=== PATIENT | female | born 1985 | race Caucasian/White ===

== ENCOUNTER 2018-03-10 11:20 | Emergency (ER) | payer OTHER ==
[2018-03-10 11:27] VITALS: TEMP 97.8
--- NOTE | 2018-03-10 11:42 | ED ---
General Adult HPI - General Chief complaint: Recheck/Abnormal Lab/Rx Stated complaint: early /has IUD Source: patient Mode of arrival: ambulatory Limitations: no limitations - History of Present Illness Initial comments: Dictation was produced using [employer] dictation software. please excuse any grammatical, word or spelling errors. Chief Complaint: 32-year-old female past medical history of ulcerative colitis presents with left lower quadrant abdominal pain and requests to have IUD removed. History of Present Illness: Patient is a 32-year-old female with ulcerative colitis. Patient states she has a intrauterine device and was placed prevent . She was supposed to get a colonoscopy. They did a screening urine test which was positive. She was denied from getting the colonoscopy. She did another urine test at home which was positive. She does have an IUD that was placed been there for several months. She requests that removed if she is in fact . She has left lower quadrant pain is concerned about ectopic . Patient states she does have some left lower quadrant pain. She states this pain is different from her ulcerative colitis pain. Patient denies any lightheadedness. Denies any vaginal bleeding or vaginal discharge. The ROS documented in this emergency department record has been reviewed and confirmed by me. Those systems with pertinent positive or negative responses have been documented in the HPI. All other systems are other negative and/or noncontributory. - Related Data Home Medications Medication Instructions Recorded Confirmed Mesalamine [Lialda] 1.2 gm PO QID 04/27/15 03/10/18 methylPREDNISolone [Medrol Dose See Taper PO DAILY 05/18/16 03/10/18 Pack] Allergies Allergy/AdvReac Type Severity Reaction Status Date / Time Sulfa (Sulfonamide AdvReac Rash/Hives Verified 03/10/18 12:38 Antibiotics) Review of Systems ROS Statement: Those systems with pertinent positive or pertinent negative responses have been documented in the HPI. ROS Other: All systems not noted in ROS Statement are negative. Past Medical History Past Medical History: GI Bleed Additional Past Medical History / Comment(s): COLITS History of Any Multi-Drug Resistant Organisms: None Reported Past Surgical History: Section Additional Past Surgical History / Comment(s): CRANIAL FACIAL SURGERIES X5 FROM AGE 11-18, R/T DEFECT. colonoscopy. IUD Past Anesthesia/Blood Transfusion Reactions: No Reported Reaction Past Psychological History: No Psychological Hx Reported Smoking Status: Never smoker Past Alcohol Use History: None Reported Past Drug Use History: None Reported - Past Family History Mother Family Medical History: Cancer Additional Family Medical History / Comment(s): BREAST CANCER General Exam - General Exam Comments Initial Comments: PHYSICAL EXAM: General Impression: Alert and oriented x3, not in acute distress HEENT: Normocephalic atraumatic, extra-ocular movements intact, pupils equal and reactive to light bilaterally, mucous membranes moist. Cardiovascular: Heart regular rate and rhythm, S1&S2 audible, no murmurs, rubs or gallops Chest: Lungs clear to auscultation bilaterally, no rhonchi, no wheeze, no rales Abdomen: Bowel sounds present, abdomen soft, mild tenderness to the left lower quadrant, non-distended, no organomegaly Musculoskeletal: Pulses present and equal in all extremities, no peripheral edema Motor: Power 5/5 bilaterally, no focal deficits noted Neurological: CN II-XII grossly intact, no focal motor or sensory deficits noted Skin: Intact with no visualized rashes Psych: Normal affect and mood Limitations: no limitations Course Vital Signs 03/10/18 11:21 Temperature 97.8 F Pulse Rate 88 Respiratory 18 Rate Blood Pressure 116/74 O2 Sat by Pulse 100 Oximetry Medical Decision Making - Medical Decision Making ED course: 32-year-old female presents with left lower quadrant pain and positive urine test. As upon arrival are within acceptable limits. Laboratory evaluation obtained. There is positive beta Quant of 5361. Ultrasound did not confirm intrauterine however there is a anechoic area intrauterine. This point is to early to tell if there is an ectopic versus viable intrauterine . Miscarriage is also on the differential. Pelvic exam showed mild left adnexal tenderness. No cervical motion tenderness or right adnexal tenderness. No vaginal bleeding. Intrauterine device was removed. Discussed patient case with Dr. Dash recommended that patient be seen outpatient with repeat beta Quant in 48 hours. Patient understandable agreeable to plan. Told to return with any worsening pain, vaginal bleeding or feelings of malaise. Patient given outpatient referral to Dr. henderson. - Lab Data Result diagrams: 03/10/18 12:30 03/10/18 12:30 Lab Results 03/10/18 03/10/18 03/10/18 Range/Units 12:30 12:30 12:30 WBC 10.0 (3.8-10.6) k/uL RBC 4.01 (3.80-5.40) m/uL Hgb 11.5 (11.4-16.0) gm/dL Hct 35.2 (34.0-46.0) % MCV 87.9 (80.0-100.0) fL MCH 28.6 (25.0-35.0) pg MCHC 32.5 (31.0-37.0) g/dL RDW 15.3 (11.5-15.5) % Plt Count 354 (150-450) k/uL Neutrophils % 86 % Lymphocytes % 8 % Monocytes % 3 % Eosinophils % 1 % Basophils % 0 % Neutrophils # 8.7 H (1.3-7.7) k/uL Lymphocytes # 0.8 L (1.0-4.8) k/uL Monocytes # 0.3 (0-1.0) k/uL Eosinophils # 0.1 (0-0.7) k/uL Basophils # 0.0 (0-0.2) k/uL Sodium 138 (137-145) mmol/L Potassium 3.4 L (3.5-5.1) mmol/L Chloride 104 (98-107) mmol/L Carbon Dioxide 26 (22-30) mmol/L Anion Gap 8 mmol/L BUN 7 (7-17) mg/dL Creatinine 0.57 (0.52-1.04) mg/dL Est GFR (CKD-EPI)AfAm >90 (>60 ml/min/1.73 sqM) Est GFR (CKD-EPI)NonAf >90 (>60 ml/min/1.73 sqM) Glucose 87 (74-99) mg/dL Calcium 9.1 (8.4-10.2) mg/dL HCG, Quant 5361.1 mIU/mL Blood Type A Positive Blood Type Recheck No Antibody Screen NEGATIVE Spec Expiration Date 03/13/20182329 Disposition Clinical Impression: Disposition: HOME SELF-CARE Condition: Good Instructions: (ED) Additional Instructions: follow up with Dr. Tim on monday after betahcg quant blood draw Is patient prescribed a controlled substance at d/c from ED?: No Referrals: Otto Grover MD [Primary Care Provider] - 1-2 days Cris Tim DO [Doctor of Osteopathic Medicine] - 1-2 days Time of Disposition: 14:27
[2018-03-10 12:54] LABS: Basophils % (A) 0 %; Eosinophils # (A) 0.1 k/uL (0-0.7); Eosinophils % (A) 1 %; HCT 35.2 % (34.0-46.0); HGB 11.5 gm/dL (11.4-16.0); Lymphocytes # (A) 0.8 k/uL (1.0-4.8); Lymphocytes % (A) 8 %; MCH 28.6 pg (25.0-35.0); MCHC 32.5 g/dL (31.0-37.0); MCV 87.9 fL (80.0-100.0); Mean Platelet Volume 7.3; Monocytes # (A) 0.3 k/uL (0-1.0); Monocytes % (A) 3 %; Neutrophils # (A) 8.7 k/uL (1.3-7.7); Neutrophils % (A) 86 %; Platelet Count 354 k/uL (150-450); RBC 4.01 m/uL (3.80-5.40); RDW 15.3 % (11.5-15.5)
[2018-03-10 13:03] LABS: Anion Gap 8 mmol/L; Blood Urea Nitrogen 7 mg/dL (7-17); Calcium 9.1 mg/dL (8.4-10.2); Carbon Dioxide 26 mmol/L (22-30); Chloride 104 mmol/L (98-107); Glucose 87 mg/dL (74-99); Potassium 3.4 mmol/L (3.5-5.1); Sodium 138 mmol/L (137-145)
[2018-03-10 13:19] LABS: HCG,Quantitative Serum 5361.1 mIU/mL
--- NOTE | 2018-03-10 13:32 | US ---
EXAMINATION TYPE: Transabdominal and transvaginal DATE OF EXAM: 07/18/17 COMPARISON: NONE CLINICAL HISTORY: Pain. Patient states she was told she was at [facility] las t week. Patient currently has IUD. Cramping EXAM PERFORMED: Transvaginal (TV) and Transabdominal (TA) EXAM MEASUREMENTS: GESTATIONAL AGE / DATING Physician Established: Not yet established Dates by LMP: LMP unknown Dates by First Scan: No previous this is first scan Dates by Current Scan for: No pole or yolk sac visualized MATERNAL ANATOMY Uterus: 9.1 x 6.1 x 6.5 cm Right Ovary: 5.8 x 2.7 x 2.6 cm Left Ovary: 3.5 x 1.8 x 2.7 cm Post CDS / Adnexa: wnl Presence of free fluid: No Presence of corpus luteal cyst: Two cystic areas visualized right ovary, largest measuring 2.2 x 2.2 x 2.5 cm Presence of subchorionic bleed: No GESTATION / SURVEY MSD: 0.69 cm - Too small to date Yolk Sac (normal less than 6mm): Not visualized on this exam IUP: No pole or yolk sac visualized on this exam Date of LMP: Unsure Beta HcG (if available): Not available at this time Linear IUD noted centrally in uterus. Near this structure there is 7 mm oval anechoic lesion could re flect gestational sac. No yolk sac or pole is present. No free fluid is seen in pelvic cul-de-s ac. Both ovaries are seen. Right ovary is asymmetrically larger with 2 thin-walled cyst or cystic lesions identified. No suspicious extraovarian adnexal lesions are seen. IMPRESSION: Findings could reflect too early to visualize intrauterine adjacent to IUD however spontane ous is in differential and ectopic cannot be excluded. Serial beta hCG and ultraso und follow-up is advised.
[2018-03-10 14:58] VITALS: BP 113/58; PULSE 77; RESP 16
== END 2018-03-10 14:56 | disposition home or self-care (01) ==
LOC: EC 11:20
DX: O99.89 Other specified diseases and conditions complicating pregnancy, childbirth and the puerperium (principal); R10.32 Left lower quadrant pain; Z87.19 Personal history of other diseases of the digestive system; Z79.52 Long term (current) use of systemic steroids; Z79.899 Other long term (current) drug therapy; Z88.2 Allergy status to sulfonamides; Z97.5 Presence of (intrauterine) contraceptive device; Z3A.00 Weeks of gestation of pregnancy not specified
CPT/HCPCS: 36415; 76801; 76817; 80048; 84702; 85025; 86850; 86900; 86901; 99284

== ENCOUNTER 2018-04-02 08:18 | Emergency (ER) | payer OTHER ==
[2018-04-02 08:26] VITALS: PULSE 85
[2018-04-02] MEDS ORDERED: SODIUM CHLORIDE 0.9% 1,000 ML IV ONE (08:41)
--- NOTE | 2018-04-02 08:51 | ED ---
General Adult HPI - General Chief complaint: Vaginal Bleeding Stated complaint: 5-6 wks Time Seen by Provider: 04/02/18 08:29 Source: patient, RN notes reviewed Mode of arrival: ambulatory Limitations: no limitations - History of Present Illness Initial comments: Patient 32-year-old female who is G2, P1, presented to the emergency room today at approximately 6 weeks by last menstrual cycle, with a chief complaint of vaginal bleeding that started this morning. Patient does admit that she's had some cramping throughout the nothing significantly has changed with the pain. She does admit that she had some bleeding starting this morning. She has noticed that she's passed a few small clots. Patient does admit some nausea throughout . Denies any other complaints or symptoms. Patient denies any recent fever, chills, shortness of breath, chest pain, back pain, nausea or vomiting, numbness or tingling, headaches or visual changes, or any other complaints. - Related Data Home Medications Medication Instructions Recorded Confirmed Bxr-Cmga-[id number] Acid 1 cap PO DAILY 04/02/18 04/02/18 [-U Capsule (formulary)] Previous Rx's Medication Instructions Recorded Nitrofurantoin Monohyd/M-Cryst 100 mg PO Q12HR #14 cap 04/02/18 [Macrobid] Allergies Allergy/AdvReac Type Severity Reaction Status Date / Time Sulfa (Sulfonamide AdvReac Rash/Hives Verified 04/02/18 09:11 Antibiotics) Review of Systems ROS Statement: Those systems with pertinent positive or pertinent negative responses have been documented in the HPI. ROS Other: All systems not noted in ROS Statement are negative. Past Medical History Past Medical History: GI Bleed Additional Past Medical History / Comment(s): COLITS History of Any Multi-Drug Resistant Organisms: None Reported Past Surgical History: Section Additional Past Surgical History / Comment(s): CRANIAL FACIAL SURGERIES X5 FROM AGE 11-18, R/T DEFECT. colonoscopy. IUD Past Anesthesia/Blood Transfusion Reactions: No Reported Reaction Past Psychological History: No Psychological Hx Reported, Depression Smoking Status: Never smoker Past Alcohol Use History: None Reported Past Drug Use History: None Reported - Past Family History Mother Family Medical History: Cancer Additional Family Medical History / Comment(s): BREAST CANCER General Exam - General Exam Comments Initial Comments: General: The patient is awake and alert, in no distress, and does not appear acutely ill. Neck: The neck is supple, there is no tenderness or JVD. Cardiovascular: There is a regular rate and rhythm. No murmur, rub or gallop is appreciated. Respiratory: Lungs are clear to auscultation, respirations are non-labored, breath sounds are equal. No wheezes, stridor, rales, or rhonchi. Gastrointestinal: Soft, non-distended, non-tender abdomen without masses or organomegaly noted. There is no rebound or guarding present. No CVA tenderness. Musculoskeletal: Normal ROM, no tenderness. Neurological: A&O x 3. CN II-XII intact, There are no obvious motor or sensory deficits. Coordination appears grossly intact. Speech is normal. Skin: Skin is warm and dry and no rashes or lesions are noted. Psychiatric: Cooperative, appropriate mood & affect, normal judgment. Limitations: no limitations Course Vital Signs 04/02/18 08:23 Temperature 98.4 F Pulse Rate 85 Respiratory 18 Rate Blood Pressure 113/76 O2 Sat by Pulse 99 Oximetry Medical Decision Making - Medical Decision Making Patient's ultrasound does show 1. She will live IUP measuring 8 weeks 6 days. 2. 4 cm heterogeneous area to the left of the gestational sac suggesting moderate size. Gestational bleed. 3. heart rate of her limits of normal at 170. 4. Otherwise, complete survey patient's Rh+. Patient resting comfortably. Recent labs been reviewed. At this time patient will be discharged home advise following up with [facility] over the next 2 days. She is advised pelvic rest. Patient's labs been reviewed. Rh+. Patient's urinalysis does show evidence for infection. Will be started on antibiotics. Advised returning if any symptoms increase worsen. - Lab Data Result diagrams: 04/02/18 09:10 04/02/18 09:10 Lab Results 04/02/18 04/02/18 04/02/18 Range/Units 09:10 09:10 09:10 WBC 5.3 (3.8-10.6) k/uL RBC 4.56 (3.80-5.40) m/uL Hgb 12.7 (11.4-16.0) gm/dL Hct 40.1 (34.0-46.0) % MCV 88.0 (80.0-100.0) fL MCH 27.8 (25.0-35.0) pg MCHC 31.6 (31.0-37.0) g/dL RDW 15.5 (11.5-15.5) % Plt Count 240 (150-450) k/uL Neutrophils % 65 % Lymphocytes % 20 % Monocytes % 5 % Eosinophils % 7 % Basophils % 1 % Neutrophils # 3.4 (1.3-7.7) k/uL Lymphocytes # 1.1 (1.0-4.8) k/uL Monocytes # 0.3 (0-1.0) k/uL Eosinophils # 0.4 (0-0.7) k/uL Basophils # 0.1 (0-0.2) k/uL Sodium 139 (137-145) mmol/L Potassium 4.6 (3.5-5.1) mmol/L Chloride 107 (98-107) mmol/L Carbon Dioxide 20 L (22-30) mmol/L Anion Gap 12 mmol/L BUN 11 (7-17) mg/dL Creatinine 0.52 (0.52-1.04) mg/dL Est GFR (CKD-EPI)AfAm >90 (>60 ml/min/1.73 sqM) Est GFR (CKD-EPI)NonAf >90 (>60 ml/min/1.73 sqM) Glucose 81 (74-99) mg/dL Calcium 9.8 (8.4-10.2) mg/dL Total Bilirubin 0.7 (0.2-1.3) mg/dL AST 34 (14-36) U/L ALT <6 L (9-52) U/L Alkaline Phosphatase 46 (38-126) U/L Total Protein 8.5 H (6.3-8.2) g/dL Albumin 5.0 (3.5-5.0) g/dL HCG, Quant 358914.0 mIU/mL Urine Color Urine Appearance (Clear) Urine pH (5.0-8.0) Ur Specific [place] (1.001-1.035) Urine Protein (Negative) Urine Glucose (UA) (Negative) Urine Ketones (Negative) Urine Blood (Negative) Urine Nitrite (Negative) Urine Bilirubin (Negative) Urine Urobilinogen (<2.0) mg/dL Ur Leukocyte Esterase (Negative) Urine RBC (0-5) /hpf Urine WBC (0-5) /hpf Urine Mucus (None) /hpf Blood Type A Positive Blood Type Recheck No 04/02/18 Range/Units 09:19 WBC (3.8-10.6) k/uL RBC (3.80-5.40) m/uL Hgb (11.4-16.0) gm/dL Hct (34.0-46.0) % MCV (80.0-100.0) fL MCH (25.0-35.0) pg MCHC (31.0-37.0) g/dL RDW (11.5-15.5) % Plt Count (150-450) k/uL Neutrophils % % Lymphocytes % % Monocytes % % Eosinophils % % Basophils % % Neutrophils # (1.3-7.7) k/uL Lymphocytes # (1.0-4.8) k/uL Monocytes # (0-1.0) k/uL Eosinophils # (0-0.7) k/uL Basophils # (0-0.2) k/uL Sodium (137-145) mmol/L Potassium (3.5-5.1) mmol/L Chloride (98-107) mmol/L Carbon Dioxide (22-30) mmol/L Anion Gap mmol/L BUN (7-17) mg/dL Creatinine (0.52-1.04) mg/dL Est GFR (CKD-EPI)AfAm (>60 ml/min/1.73 sqM) Est GFR (CKD-EPI)NonAf (>60 ml/min/1.73 sqM) Glucose (74-99) mg/dL Calcium (8.4-10.2) mg/dL Total Bilirubin (0.2-1.3) mg/dL AST (14-36) U/L ALT (9-52) U/L Alkaline Phosphatase (38-126) U/L Total Protein (6.3-8.2) g/dL Albumin (3.5-5.0) g/dL HCG, Quant mIU/mL Urine Color Light Red Urine Appearance Clear (Clear) Urine pH 6.0 (5.0-8.0) Ur Specific [place] 1.020 (1.001-1.035) Urine Protein 1+ H (Negative) Urine Glucose (UA) Negative (Negative) Urine Ketones Negative (Negative) Urine Blood Large H (Negative) Urine Nitrite Negative (Negative) Urine Bilirubin Negative (Negative) Urine Urobilinogen <2.0 (<2.0) mg/dL Ur Leukocyte Esterase Small H (Negative) Urine RBC >182 H (0-5) /hpf Urine WBC 55 H (0-5) /hpf Urine Mucus Many H (None) /hpf Blood Type Blood Type Recheck Disposition Clinical Impression: , UTI (urinary tract infection) Disposition: HOME SELF-CARE Condition: Good Instructions: Urinary Tract Infection in Women (ED) Additional Instructions: Please use medication as discussed. Please follow-up with the [facility] over the next 2 days. Please return to emergency room if the symptoms increase or worsen or for any other concerns. Prescriptions: Nitrofurantoin Monohyd/M-Cryst [Macrobid] 100 mg PO Q12HR #14 cap Is patient prescribed a controlled substance at d/c from ED?: No Referrals: Otto Grover MD [Primary Care Provider] - 1-2 days Time of Disposition: 12:18
[2018-04-02 09:30] LABS: Basophils # (A) 0.1 k/uL (0-0.2); Basophils % (A) 1 %; Eosinophils # (A) 0.4 k/uL (0-0.7); Eosinophils % (A) 7 %; HCT 40.1 % (34.0-46.0); HGB 12.7 gm/dL (11.4-16.0); Lymphocytes # (A) 1.1 k/uL (1.0-4.8); Lymphocytes % (A) 20 %; MCH 27.8 pg (25.0-35.0); MCHC 31.6 g/dL (31.0-37.0); Mean Platelet Volume 8.1; Monocytes # (A) 0.3 k/uL (0-1.0); Monocytes % (A) 5 %; Neutrophils # (A) 3.4 k/uL (1.3-7.7); Neutrophils % (A) 65 %; Platelet Count 240 k/uL (150-450); RBC 4.56 m/uL (3.80-5.40); RDW 15.5 % (11.5-15.5); WBC 5.3 k/uL (3.8-10.6)
[2018-04-02 09:41] LABS: ALT <6 U/L (9-52); AST 34 U/L (14-36); Alkaline Phosphatase 46 U/L (38-126); Anion Gap 12 mmol/L; Blood Urea Nitrogen 11 mg/dL (7-17); Calcium 9.8 mg/dL (8.4-10.2); Carbon Dioxide 20 mmol/L (22-30); Chloride 107 mmol/L (98-107); Glucose 81 mg/dL (74-99); Potassium 4.6 mmol/L (3.5-5.1); Sodium 139 mmol/L (137-145); Total Bilirubin 0.7 mg/dL (0.2-1.3); Total Protein 8.5 g/dL (6.3-8.2)
--- NOTE | 2018-04-02 10:15 | US ---
EXAMINATION TYPE: Transabdominal DATE OF EXAM: 07/18/17 COMPARISON: US 03/10/2018 CLINICAL HISTORY: 32-year-old female pain. IUD removed 03/10/2018, positive test, bleeding today EXAM PERFORMED: Transabdominal (TA) FINDINGS: EXAM MEASUREMENTS: GESTATIONAL AGE / DATING Physician Established: Not yet established Dates by LMP: LMP unknown Dates by First Scan: Unable to date at that time Dates by Current Scan for: (8 weeks/6 days) EDC: 11/06/2018 MATERNAL ANATOMY Uterus: 9.9 x 6.8 x 7.6 cm Right Ovary: 5.2 x 2.6 x 2.4 cm Left Ovary: 3.9 x 1.8 x 2.7 cm Post CDS / Adnexa: wnl Presence of free fluid: No Presence of corpus luteal cyst: Two cystic areas right ovary, largest measuring 1.7 x 1.7 x 1.7 cm, one of which likely represents a corpus luteum. Presence of subchorionic bleed: Heterogeneous area to the left of the gestational sac measuring 3.8 x 2.4 x 4.0 cm GESTATION / SURVEY CRL: 2.2 cm (8 weeks/6 days) Yolk Sac (normal less than 6mm): 3 mm Heart Rate: 170 bpm Rhythm: Normal IUP: Viable IUP Date of LMP: LMP unknown Beta HcG (if available): Not available at this time Home Care Liaison notes: Viable IUP with an MARGARITA of 11/06/2018 by this exam. Probable subchorionic bleed vis ualized measuring 3.8 x 2.4 x 4.0 cm IMPRESSION: 1. Single live intrauterine with gestational age of 8 weeks 6 days by crown-rump length. Pr evious IUD removed. 2. A 4 cm heterogeneous area to the left of the gestational sac suggests a moderate-sized perigestati onal bleed. 3. heart rate upper limits of normal (170 BPM). Consider short interval follow-up. 4. Otherwise, complete survey recommended at 18-20 weeks.
[2018-04-02 12:11] LABS: Appearance,Urine Clear (Clear); Bilirubin,Urine Negative (Negative); Blood,Urine Large (Negative); Color,Urine Light Red; Glucose,Urine (UA) Negative (Negative); Ketones,Urine Negative (Negative); Leukocyte Esterase,Urine Small (Negative); Mucus,Urine Many /hpf; Nitrite,Urine Negative (Negative); Protein,Urine 1+ (Negative); RBC,Urine >182 /hpf (0-5); Urobilinogen,Urine <2.0 mg/dL (<2.0); WBC,Urine 55 /hpf (0-5)
[2018-04-02 12:30] VITALS: BP 117/74; RESP 15; TEMP 99.1
== END 2018-04-02 12:25 | disposition home or self-care (01) ==
LOC: EC 08:18
DX: O23.41 Unspecified infection of urinary tract in pregnancy, first trimester (principal); O20.9 Hemorrhage in early pregnancy, unspecified; O99.89 Other specified diseases and conditions complicating pregnancy, childbirth and the puerperium; R11.0 Nausea; Z3A.08 8 weeks gestation of pregnancy; Z88.2 Allergy status to sulfonamides; Z53.8 Procedure and treatment not carried out for other reasons
CPT/HCPCS: 36415; 76801; 80053; 81001; 84702; 85025; 86900; 86901; 99284

== ENCOUNTER 2018-04-11 08:17 | Emergency (ER) | payer OTHER ==
[2018-04-11 08:21] VITALS: RESP 18
--- NOTE | 2018-04-11 08:32 | ED ---
Female Urogenital HPI - General Chief complaint: Vaginal Bleeding Stated complaint: Vaginal Bleeding-10 wks Time Seen by Provider: 04/11/18 08:22 Source: patient, RN notes reviewed, old records reviewed Mode of arrival: ambulatory Limitations: no limitations - History of Present Illness Initial comments: Patient is a 32-year-old female, who presents emergency Department due to plan heavy vaginal bleeding morning. Patient reports that she was diagnosed with subchorionic bleed 2 weeks ago. At that time she's a weeks , currently 10 weeks . She reports she passed heavy clots and she believes she may have completed a miscarriage. Patient implanted no pain or cramping at this time. She reports that her bleeding has slowed. She felt slightly dizzy at the time. Patient is a female. Her [employer] is Dr. Estevez. - Related Data Home Medications Medication Instructions Recorded Confirmed Imf-Otsp-Mvoaw Acid 1 cap PO DAILY 04/02/18 04/11/18 [-U Capsule (formulary)] Allergies Allergy/AdvReac Type Severity Reaction Status Date / Time Sulfa (Sulfonamide AdvReac Rash/Hives Verified 04/11/18 08:50 Antibiotics) Review of Systems ROS Statement: Those systems with pertinent positive or pertinent negative responses have been documented in the HPI. ROS Other: All systems not noted in ROS Statement are negative. Past Medical History Past Medical History: GI Bleed Additional Past Medical History / Comment(s): COLITS History of Any Multi-Drug Resistant Organisms: None Reported Past Surgical History: Section Additional Past Surgical History / Comment(s): CRANIAL FACIAL SURGERIES X5 FROM AGE 11-18, R/T DEFECT. colonoscopy. IUD Past Anesthesia/Blood Transfusion Reactions: No Reported Reaction Past Psychological History: Depression Smoking Status: Never smoker Past Alcohol Use History: None Reported Past Drug Use History: None Reported - Past Family History Mother Family Medical History: Cancer Additional Family Medical History / Comment(s): BREAST CANCER General Exam - General Exam Comments Initial Comments: This Patient is a 32-year-old female. Alert and oriented. Patient appears in no significant distress. Limitations: no limitations General appearance: alert, in no apparent distress Head exam: Present: atraumatic, normocephalic, normal inspection Eye exam: Present: normal appearance, PERRL, EOMI. Absent: scleral icterus, conjunctival injection, periorbital swelling ENT exam: Present: normal exam, mucous membranes moist Neck exam: Present: normal inspection. Absent: tenderness, meningismus, lymphadenopathy Respiratory exam: Present: normal lung sounds bilaterally. Absent: respiratory distress, wheezes, rales, rhonchi, stridor Cardiovascular Exam: Present: regular rate GI/Abdominal exam: Present: soft, normal bowel sounds. Absent: distended, tenderness, guarding, rebound, rigid External exam: Present: normal external exam Speculum exam: Present: vaginal bleeding (heavy clots from cervix). Absent: normal speculum exam Extremities exam: Present: normal inspection, full ROM, normal capillary refill. Absent: tenderness, pedal edema, joint swelling, calf tenderness Back exam: Present: normal inspection Neurological exam: Present: alert, oriented X3, CN II-XII intact Psychiatric exam: Present: normal affect, normal mood Skin exam: Present: warm, dry, intact, normal color. Absent: rash Course Vital Signs 04/11/18 04/11/18 08:18 10:35 Temperature 98.1 F 98 F Pulse Rate 88 64 Respiratory 18 18 Rate Blood Pressure 112/70 120/72 O2 Sat by Pulse 100 100 Oximetry Medical Decision Making - Medical Decision Making Patient is a 32-year-old female presents returns here to plan of heavy vaginal bleeding times one day. Recently diagnosed with subchorionic bleed. Patient's ultrasound that showed a viable IUP measuring about 10 weeks. Patient has Rh+ blood type. HCG is [id number]. Patient does have very large subchorionic bleed at this time likely from the source patient's bleeding. We'll diagnosed Patient with threatened miscarriage. Advised following up with her [employer]. All questions answered return parameters were discussed. Patient does have an appointment with her [employer] tomorrow. - Lab Data Result diagrams: 04/11/18 08:45 04/11/18 08:45 Lab Results 04/11/18 04/11/18 04/11/18 Range/Units 06:55 08:45 08:45 WBC 5.3 (3.8-10.6) k/uL RBC 4.34 (3.80-5.40) m/uL Hgb 12.5 (11.4-16.0) gm/dL Hct 38.4 (34.0-46.0) % MCV 88.6 (80.0-100.0) fL MCH 28.9 (25.0-35.0) pg MCHC 32.7 (31.0-37.0) g/dL RDW 15.4 (11.5-15.5) % Plt Count 249 (150-450) k/uL Neutrophils % 69 % Lymphocytes % 21 % Monocytes % 4 % Eosinophils % 4 % Basophils % 1 % Neutrophils # 3.6 (1.3-7.7) k/uL Lymphocytes # 1.1 (1.0-4.8) k/uL Monocytes # 0.2 (0-1.0) k/uL Eosinophils # 0.2 (0-0.7) k/uL Basophils # 0.1 (0-0.2) k/uL Sodium (137-145) mmol/L Potassium (3.5-5.1) mmol/L Chloride (98-107) mmol/L Carbon Dioxide (22-30) mmol/L Anion Gap mmol/L BUN (7-17) mg/dL Creatinine (0.52-1.04) mg/dL Est GFR (CKD-EPI)AfAm (>60 ml/min/1.73 sqM) Est GFR (CKD-EPI)NonAf (>60 ml/min/1.73 sqM) Glucose (74-99) mg/dL Calcium (8.4-10.2) mg/dL Total Bilirubin (0.2-1.3) mg/dL AST (14-36) U/L ALT (9-52) U/L Alkaline Phosphatase (38-126) U/L Total Protein (6.3-8.2) g/dL Albumin (3.5-5.0) g/dL Urine Color Dark Red Urine Appearance Cloudy H (Clear) Urine pH 5.0 (5.0-8.0) Ur Specific [place] 1.017 (1.001-1.035) Urine Protein 1+ H (Negative) Urine Glucose (UA) Negative (Negative) Urine Ketones Trace H (Negative) Urine Blood Large H (Negative) Urine Nitrite Negative (Negative) Urine Bilirubin Negative (Negative) Urine Urobilinogen <2.0 (<2.0) mg/dL Ur Leukocyte Esterase Small H (Negative) Urine RBC >182 H (0-5) /hpf Urine WBC 11 H (0-5) /hpf Ur Squamous Epith Cells 3 (0-4) /hpf Urine Mucus Few H (None) /hpf Blood Type A Positive Blood Type Recheck No 04/11/18 Range/Units 08:45 WBC (3.8-10.6) k/uL RBC (3.80-5.40) m/uL Hgb (11.4-16.0) gm/dL Hct (34.0-46.0) % MCV (80.0-100.0) fL MCH (25.0-35.0) pg MCHC (31.0-37.0) g/dL RDW (11.5-15.5) % Plt Count (150-450) k/uL Neutrophils % % Lymphocytes % % Monocytes % % Eosinophils % % Basophils % % Neutrophils # (1.3-7.7) k/uL Lymphocytes # (1.0-4.8) k/uL Monocytes # (0-1.0) k/uL Eosinophils # (0-0.7) k/uL Basophils # (0-0.2) k/uL Sodium 139 (137-145) mmol/L Potassium 4.6 (3.5-5.1) mmol/L Chloride 109 H (98-107) mmol/L Carbon Dioxide 20 L (22-30) mmol/L Anion Gap 10 mmol/L BUN 9 (7-17) mg/dL Creatinine 0.47 L (0.52-1.04) mg/dL Est GFR (CKD-EPI)AfAm >90 (>60 ml/min/1.73 sqM) Est GFR (CKD-EPI)NonAf >90 (>60 ml/min/1.73 sqM) Glucose 101 H (74-99) mg/dL Calcium 9.4 (8.4-10.2) mg/dL Total Bilirubin 0.8 (0.2-1.3) mg/dL AST 35 (14-36) U/L ALT 13 (9-52) U/L Alkaline Phosphatase <20 L (38-126) U/L Total Protein 7.4 (6.3-8.2) g/dL Albumin 4.2 (3.5-5.0) g/dL Urine Color Urine Appearance (Clear) Urine pH (5.0-8.0) Ur Specific [place] (1.001-1.035) Urine Protein (Negative) Urine Glucose (UA) (Negative) Urine Ketones (Negative) Urine Blood (Negative) Urine Nitrite (Negative) Urine Bilirubin (Negative) Urine Urobilinogen (<2.0) mg/dL Ur Leukocyte Esterase (Negative) Urine RBC (0-5) /hpf Urine WBC (0-5) /hpf Ur Squamous Epith Cells (0-4) /hpf Urine Mucus (None) /hpf Blood Type Blood Type Recheck - Radiology Data Radiology results: report reviewed Ultrasound shows single live IUP PE be demonstrated. Persistent moderate size subchorionic hematoma noted. Consider short-term follow-up with a beta hCG and ultrasound. Disposition Clinical Impression: Subchorionic bleed, Threatened miscarriage Disposition: HOME SELF-CARE Condition: Good Instructions: Threatened Miscarriage (ED) Additional Instructions: Follow-up with your [employer] and primary care provider. Return to emergency department if any alarming signs or symptoms occur. Is patient prescribed a controlled substance at d/c from ED?: No Referrals: Otto Grover MD [Primary Care Provider] - 1-2 days Time of Disposition: 11:03
[2018-04-11 09:06] LABS: Basophils # (A) 0.1 k/uL (0-0.2); Basophils % (A) 1 %; Eosinophils # (A) 0.2 k/uL (0-0.7); Eosinophils % (A) 4 %; HCT 38.4 % (34.0-46.0); HGB 12.5 gm/dL (11.4-16.0); Lymphocytes # (A) 1.1 k/uL (1.0-4.8); Lymphocytes % (A) 21 %; MCH 28.9 pg (25.0-35.0); MCHC 32.7 g/dL (31.0-37.0); MCV 88.6 fL (80.0-100.0); Mean Platelet Volume 7.1; Monocytes # (A) 0.2 k/uL (0-1.0); Monocytes % (A) 4 %; Neutrophils # (A) 3.6 k/uL (1.3-7.7); Neutrophils % (A) 69 %; Platelet Count 249 k/uL (150-450); RBC 4.34 m/uL (3.80-5.40); RDW 15.4 % (11.5-15.5); WBC 5.3 k/uL (3.8-10.6)
[2018-04-11 09:08] LABS: ALT 13 U/L (9-52); AST 35 U/L (14-36); Albumin 4.2 g/dL (3.5-5.0); Alkaline Phosphatase <20 U/L (38-126); Anion Gap 10 mmol/L; Blood Urea Nitrogen 9 mg/dL (7-17); Calcium 9.4 mg/dL (8.4-10.2); Carbon Dioxide 20 mmol/L (22-30); Chloride 109 mmol/L (98-107); Glucose 101 mg/dL (74-99); Sodium 139 mmol/L (137-145); Total Bilirubin 0.8 mg/dL (0.2-1.3); Total Protein 7.4 g/dL (6.3-8.2)
[2018-04-11 09:11] LABS: Potassium 4.6 mmol/L (3.5-5.1)
[2018-04-11 09:12] LABS: Appearance,Urine Cloudy (Clear); Bilirubin,Urine Negative (Negative); Blood,Urine Large (Negative); Color,Urine Dark Red; Glucose,Urine (UA) Negative (Negative); Ketones,Urine Trace (Negative); Leukocyte Esterase,Urine Small (Negative); Mucus,Urine Few /hpf; Nitrite,Urine Negative (Negative); Protein,Urine 1+ (Negative); RBC,Urine >182 /hpf (0-5); Specific Gravity,Urine 1.017 (1.001-1.035); Squamous Epithelial Cell,Urine 3 /hpf (0-4); Urobilinogen,Urine <2.0 mg/dL (<2.0)
--- NOTE | 2018-04-11 09:56 | US ---
EXAMINATION TYPE: Transabdominal DATE OF EXAM: 07/18/17 COMPARISON: US 9 days ago. CLINICAL HISTORY: pain. Pt states heavy vaginal bleeding with clots that started this AM/ Pt denies p ain EXAM PERFORMED: Transabdominal (TA) EXAM MEASUREMENTS: GESTATIONAL AGE / DATING Physician Established: Not yet established Dates by LMP: Unknown Dates by First Scan: (10 weeks/1 days) EDC: 11/06/2018 Dates by Current Scan for: (10 weeks/2 days) EDC: 11/05/2018 MATERNAL ANATOMY Uterus: 11.0 x 7.4 x 9.0 cm Right Ovary: 3.7 x 2.2 x 3.3 cm Left Ovary: 3.0 x 1.9 x 2.1 cm Post CDS / Adnexa: wnl Presence of free fluid: No Presence of corpus luteal cyst: Right Ovary= 1.7 x 1.9 x 2.2 cm Presence of subchorionic bleed: Left uterus as seen on prior= 3.6 x 2.5 x 1.5 cm GESTATION / SURVEY CRL: 3.4 cm (10 weeks/2 days) MSD: wnl Yolk Sac (normal less than 6mm): 3mm Heart Rate: 178 bpm IUP: Viable IUP Single live intrauterine gestation redemonstrated as gestational sac, yolk sac, and pole are ag ain seen. No free fluid is seen in pelvic cul-de-sac. heart rate similar to prior upper limits of normal. There is persistent moderate size subchorionic hemorrhage along left inferior aspect of ge stational sac as detailed above stable or slightly smaller versus prior. Both ovaries are seen. Within right ovary there is persistent 2.2 cm oval anechoic lesion consistent with corpus luteal cyst. No suspicious extraovarian adnexal masses are noted. IMPRESSION: Single live intrauterine gestation redemonstrated, persistent moderate size subchorionic hematoma not ed. Consider short-term beta-hCG and ultrasound follow-up.
[2018-04-11 10:42] VITALS: BP 120/72; PULSE 64; TEMP 98
== END 2018-04-11 11:16 | disposition home or self-care (01) ==
LOC: EC 08:17
DX: O20.0 Threatened abortion (principal); Z67.90 Unspecified blood type, Rh positive; Z88.2 Allergy status to sulfonamides; Z98.890 Other specified postprocedural states; Z3A.10 10 weeks gestation of pregnancy
CPT/HCPCS: 36415; 76801; 80053; 81001; 84702; 85025; 86900; 86901; 87086; 99284

== ENCOUNTER → 2018-04-26 | Outpatient (CLI) | payer OTHER ==
--- NOTE | 2018-04-26 10:05 | US ---
EXAMINATION TYPE: Transabdominal DATE OF EXAM: 07/18/17 COMPARISON: US April 11, 2018 CLINICAL HISTORY: Z34.90Encounter for supervision of normal . F/U previous abnormal US/ Pt d enies pain or bleeding at this time EXAM PERFORMED: Transabdominal (TA) EXAM MEASUREMENTS: GESTATIONAL AGE / DATING Physician Established: (12 weeks/3 days) EDC: 11/05/2018 Dates by LMP: Unknown Dates by First Scan: (12 weeks/2 days) EDC: 11/06/2018 Dates by Current Scan for: (12 weeks/2 days) EDC: 11/06/2018 MATERNAL ANATOMY Uterus: 14.4 x 6.1 x 9.8 cm Right Ovary: 4.2 x 2.4 x 2.5 cm Left Ovary: 3.2 x 2.0 x 2.7 cm Post CDS / Adnexa: wnl Presence of free fluid: No Presence of corpus luteal cyst: Right Ovary= 1.9 x 1.9 x 1.9 cm Presence of subchorionic bleed: Left Uterus= 3.1 x 2.1 x 2.1 cm as seen on previous GESTATION / SURVEY CRL: 5.8 cm (12 weeks/2 days) MSD: wnl Heart Rate: 163 bpm Rhythm: Normal IUP: Viable IUP Nuchal Translucency 10-14wks (normal less than 3mm): 2mm Single live intrauterine gestation is redemonstrated as gestational sac and pole are seen. Yolk sac is not clearly identified on current study. No free fluid is seen in pelvic cul-de-sac. There is persistent small to moderate-sized subchorionic bleed left of gestational sac as detailed above not significantly changed in size from prior study. Both ovaries are redemonstrated without new adnexal mass. Corpus luteal cyst right ovary is again see n. IMPRESSION: Single live intrauterine gestation redemonstrated, interval satisfactory growth progression. Stable s mall to moderate-sized subchorionic hemorrhage.
== END ==
LOC: RADUSWWP 08:43
PROVIDERS: ATTEND Obstetrics & Gynecology
DX: Z34.91 Encounter for supervision of normal pregnancy, unspecified, first trimester (principal); Z3A.12 12 weeks gestation of pregnancy
CPT/HCPCS: 76801; 76813

== ENCOUNTER → 2018-06-14 | Outpatient (CLI) | payer OTHER ==
--- NOTE | 2018-06-14 15:18 | US ---
EXAMINATION TYPE: US OB anatomy transabd DATE OF EXAM: 06/14/2018 COMPARISON: US first trimester 04/26/2018 HISTORY: [id number] supervision of other normal TECHNIQUE: Transabdominal (TA) EXAM MEASUREMENTS: GESTATIONAL AGE / DATING Physician Established: (19 weeks/3 days) EDC: 11/05/2018 Dates by LMP: (19 weeks/3 days) EDC: 11/05/2018 Dates by First Scan: (19 weeks/2 days) EDC: 11/06/2018 Dates by Current Scan for: (19 weeks/1 days) EDC: 11/07/2018 SURVEY IUP: Single PLACENTA: Anterior PREVIA: No previa MICHAEL: 17.1 cm Normal CERVICAL LENGTH (transabdominal: norm > 3.0cm): 3.8 cm BIOMETRY PRESENTATION: Vertex LIE: Longitudinal BPD: 4.3 cm 19 weeks / 0 days HC: 16.3 cm 19 weeks / 0 days AC: 14.1 cm 19 weeks / 4 days FL: 3.1 cm 19 weeks / 4 days ESTIMATED WEIGHT IN GRAMS: 294 grams ESTIMATED WEIGHT IN LBS/OZ: 0 lbs. 10 oz. WEIGHT PERCENTAGE BASED ON ESTABLISHED DATE: 47.8 % HC/AC: 1.15 Normal FL/AC: 21.79 Normal HEART RATE: 152 bpm RHYTHM: Normal ANATOMY SEEN (within normal limits): * Lateral Vent (< 1 cm) 0.8 cm * Cisterna Magna (< 1.1 cm) 0.3 cm * Nuchal Fold (< 0.6 cm) 0.3 cm * Cerebellum (varies with age) 1.8 cm Choroid Plexus (bilateral) Midline Falx Cavus Septi Pellucidi Four Chamber Heart Stomach Situs Nose / Lips Diaphragm Kidneys (bilateral) Bladder Cord Insert Three Vessel Cord Longitudinal Spine Transverse Spine Arms (bilateral) Legs (bilateral) ANATOMY SEEN (does not appear within normal limits): ANATOMY NOT SEEN due to position. Two techs attempted to obtain: Outflow tracts: LVOT/RVOT Patient scheduled for OB callback on July 04, 2018. Single live intrauterine gestation is redemonstrated. No cervical thinning is seen. Normal cephalad p resentation to fetus is noted. Amniotic fluid index is calculated upper limits of normal. There is no placenta previa. biometry measurements are congruent and felt within normal limits. Detailed anatomical survey shows no suspicious abnormality during real-time scanning. Still images sa gaviota show no suspicious abnormality. There is suboptimal documentation of bilateral upper and lower ex tremities, spine on 2 views, four-chamber heart, and nose/lips. Real-time scanning fails to show card iac outflow tracts sufficiently. IMPRESSION: As above, patient to return for anatomical reevaluation.
== END | disposition home or self-care (01) ==
LOC: RADUSWWP 11:59
PROVIDERS: ATTEND Obstetrics & Gynecology
DX: Z34.82 Encounter for supervision of other normal pregnancy, second trimester (principal)
CPT/HCPCS: 76811

== ENCOUNTER → 2018-07-09 | Outpatient (CLI) | payer OTHER ==
--- NOTE | 2018-07-09 09:16 | US ---
EXAMINATION TYPE: US OB Call Back DATE OF EXAM: 07/09/2018 COMPARISON: NONE CLINICAL HISTORY: RVOT/CALL BACK. GESTATIONAL AGE / DATING Dates by Initial Survey Scan: (23 weeks/0 days) EDC: 11/05/18 HEART RATE: 152 bpm RHYTHM: Normal ANATOMY SEEN (second anatomic survey look): Four Chamber Heart: Unremarkable Outflow tracts:? LVOT/RVOT Arms (bilateral): Unremarkable Legs (bilateral): Unremarkable IMPRESSION: Visualized limited anatomy not previously seen on the exam of 06/06/2018 is identified today and unrem arkable.
== END | disposition home or self-care (01) ==
LOC: RADUSWWP 06:57
PROVIDERS: ATTEND Obstetrics & Gynecology
DX: Z53.9 Procedure and treatment not carried out, unspecified reason (principal)

== ENCOUNTER → 2018-10-10 | Outpatient (CLI) | payer OTHER ==
--- NOTE | 2018-10-11 07:52 | US ---
EXAMINATION TYPE: US OB >= 14 wk fetus DATE OF EXAM: 10/10/2018 COMPARISON: US 2018 CLINICAL HISTORY: Z34.80 SUPERVISION OF OTHER NORMAL PREGNANCYGrowth TECHNIQUE: Transabdominal (TA) GESTATIONAL AGE / DATING Physician Established: (36 weeks/1 days) EDC: 11/06/2018 Dates by LMP: (36 weeks/2 days) EDC: 11/05/2018 Dates by First Scan: (36 weeks/1 days) EDC: 11/06/2018 Dates by Current Scan: (35 weeks/5 days) EDC: 11/09/2018 SURVEY IUP: Single PLACENTA: Fundal PREVIA: No Previa MICHAEL: 11.1 cm Normal CERVICAL LENGTH (transabdominal: norm > 3.0cm): 3.8 cm BIOMETRY PRESENTATION: Vertex BPD: 8.9 cm 36 weeks / 1 days HC: 31.7 cm 35 weeks / 5 days AC: 30.7 cm 34 weeks / 5 days FL: 7.0 cm 36 weeks / 0 days ESTIMATED WEIGHT IN GRAMS: 2626 grams ESTIMATED WEIGHT IN LBS/OZ: 5 lbs. 13 oz. WEIGHT PERCENTAGE BASED ON ESTABLISHED DATES: 28% HC/AC: 1.03 Normal FL/AC: 23% Normal HEART RATE: 142 bpm RHYTHM: Normal Live single IUP measuring 35 weeks 5 days with a heart rate of 142bpm and an estimated delivery date of 11/09/2018. IMPRESSION: Single live intrauterine with a sonographic age of 35 weeks and 5 days and estimated date o f delivery of 11/09/2018, overall concordant with menstrual age. Current heart rate of 142 bpm, within normal limits. Weight percentage based on established dates of 28%.
== END | disposition home or self-care (01) ==
LOC: RADUSWWP 15:59
PROVIDERS: ATTEND Obstetrics & Gynecology
DX: Z34.83 Encounter for supervision of other normal pregnancy, third trimester (principal)
CPT/HCPCS: 76805